=== PATIENT | female | born 1985 | race American Indian/Alaskan Native ===

== ENCOUNTER 2017-12-16 17:24 | Emergency (ER) | payer MEDICAID, OTHER ==
[2017-12-16 17:42] VITALS: BP 120/75
--- NOTE | 2017-12-16 20:04 | Emergency Department Report ---
Blank Doc - Documentation Documentation: Patient states 5 days ago she was lifting a sofa and started having some chest pain, abdominal pain, 8 out of 10, sharp without radiation. Symptoms are worse with movement. She has tried [id number] pain medicine without relief. She has a history of high blood pressure.
[2017-12-16 20:14] LABS: Basophils % (Auto) 0.6 % (0.0-1.8); Eosinophils # (Auto) 0.3 K/mm3 (0.0-0.4); Eosinophils % (Auto) 5.3 % (0.0-4.3); Hematocrit 41.1 % (30.3-42.9); Hemoglobin 13.8 gm/dl (10.1-14.3); Lymphocytes # (Auto) 2.2 K/mm3 (1.2-5.4); Lymphocytes % (Auto) 43.3 % (13.4-35.0); Mean Corpuscular HGB Conc 34 % (30-34); Mean Corpuscular Hemoglobin 30 pg (28-32); Mean Corpuscular Volume 89 fl (79-97); Monocytes # (Auto) 0.4 K/mm3 (0.0-0.8); Monocytes % (Auto) 7.3 % (0.0-7.3); Platelet Count 246 K/mm3 (140-440); Red Blood Count 4.59 M/mm3 (3.65-5.03)
[2017-12-16] MEDS ORDERED: ULTRAM PO ONE (20:19)
[2017-12-16 20:28] LABS: Alanine Aminotransferase 35 units/L (7-56); Albumin 4.3 g/dL (3.9-5); BUN/Creatinine Ratio 14; Blood Urea Nitrogen 10 mg/dL (7-17); Calcium 9.8 mg/dL (8.4-10.2); Hemolysis Index 4
--- NOTE | 2017-12-16 21:13 | XRay Report ---
FINAL REPORT EXAM: XR CHEST 1V AP HISTORY: chest pain TECHNIQUE: AP portable view of the chest PRIORS: None. FINDINGS: Lines, tubes, and devices: N/A Lungs and pleura: Trachea is normal in position. Lungs are clear of infiltrate, pleural effusion, vascular congestion, or pneumothorax. Cardiomediastinal silhouette: Cardiac and mediastinal silhouettes are unremarkable. Other: Bony structures are intact. IMPRESSION: No acute cardiopulmonary process seen.
--- NOTE | 2017-12-16 21:25 | Emergency Department Report ---
ED Chest Pain HPI - General Chief Complaint: Chest Pain Stated Complaint: CHEST,ABD,NECK PAIN, SPITTING UP BLOOD Time Seen by Provider: 12/16/17 21:23 Source: patient, family Mode of arrival: Ambulatory Limitations: No Limitations - History of Present Illness Initial Comments: Patient states 5 days ago she was lifting a sofa and started having some chest pain, abdominal pain, 8 out of 10, sharp without radiation. Symptoms are worse with movement. She has tried xbbj-nfv-mkyphfk pain medicine without relief. She has a history of high blood pressure. Denies any urinary burning frequency or urgency. Denies any nausea or vomiting. Denies any fever or chills. Reports lower back pain. Denies any vaginal bleeding or discharge. Denies any history of pulmonary embolism or heart disease. Denies any recent long distance travel for 3 hours or greater by plane or car. Denies taking control pills. Has any personal history of blood clots or family history of blood clot. Denies any swelling to her legs. Denies any chest pain or shortness of breath. Patient was screened and orders initiated by Dr. Figueroa. Complaint: chest pain Onset/Timin -: days(s) Onset: during exertion Pain Location: left chest, right chest Pain Radiation: none Severity: moderate (she reported pain was 10 out of 10 in triage area but 5 out of 10.) Severity scale (0 -10): 5 Quality: aching, other (cramping to her abdomen) Consistency: intermittent Improves With: rest Worsens With: exertion Context: trauma/injury (lifting heavy object) re: denies: nausea, vomting, diaphoresis, dyspnea, sense of impending doom Other Symptoms: denies: cough, fever, syncope, rash, acid taste in mouth, leg swelling, palpitations, burping Treatments Prior to Arrival: none Aspirin use within the Past 7 Days: (0) No - Related Data On Oral Contraceptives: No Home Medications Medication Instructions Recorded Confirmed Last Taken metroNIDAZOLE [Metronidazole] 1 tab PO BID 09/14/15 09/14/15 09/13/15 20:00 Previous Rx's Medication Instructions Recorded Last Taken Type Labetalol [Normodyne TAB] 200 mg PO BID #60 tablet 10/18/15 Unknown Rx Azithromycin [Zithromax TAB] 250 mg PO QDAY #6 tablet 01/27/16 Unknown Rx Cetirizine HCl [ZyrTEC] 10 mg PO QDAY #30 capsule 01/27/16 Unknown Rx guaiFENesin/CODEINE [Robitussin AC] 5 ml PO Q8H #120 ml 01/27/16 Unknown Rx Nitrofurantoin [place]/M-Cryst 100 mg PO Q12HR 5 Days #10 capsule 12/16/17 Unknown Rx [Macrobid CAP] Allergies Allergy/AdvReac Type Severity Reaction Status Date / Time penicillin G Allergy Rash Verified 12/16/17 17:38 venom-honey bee AdvReac Swelling Verified 12/16/17 17:38 [bee venom (honey bee)] Heart Score - HEART Score History: Slightly suspicious EKG: Normal Age: < 45 Risk factors: 1-2 risk factors Troponin: < normal limit HEART Score: 1 - Critical Actions Critical Actions: 0-3 pts:0.9-1.7%risk of adverse cardiac event.Candidate for discharge ED Review of Systems ROS: Stated complaint: CHEST,ABD,NECK PAIN, SPITTING UP BLOOD Other details as noted in HPI Comment: All other systems reviewed and negative Constitutional: no symptoms reported ENT: denies: congestion Respiratory: no symptoms reported Cardiovascular: chest pain. denies: palpitations, dyspnea on exertion, edema, syncope, paroxysmal nocturnal dyspnea Gastrointestinal: abdominal pain. denies: nausea, vomiting, diarrhea, constipation, hematemesis, melena, hematochezia Genitourinary: denies: urgency, dysuria, frequency, hematuria, discharge, abnormal menses, dyspareunia Musculoskeletal: back pain. denies: joint swelling, arthralgia, myalgia Skin: denies: rash Neurological: denies: headache, weakness, numbness, paresthesias, confusion, abnormal gait, vertigo ED Past Medical Hx - Past Medical History Previous Medical History?: Yes Hx Hypertension: Yes Hx Congestive Heart Failure: No Hx Diabetes: No Hx Deep Vein Thrombosis: No Hx Renal Disease: No Hx Sickle Cell Disease: No Hx Seizures: No Hx Asthma: Yes Hx COPD: No Hx HIV: No - Surgical History Past Surgical History?: No - Family History Family history: hypertension - Social History Smoking Status: Current Every Day Smoker Substance Use Type: None - Medications Home Medications: Home Medications Medication Instructions Recorded Confirmed Last Taken Type metroNIDAZOLE [Metronidazole] 1 tab PO BID 09/14/15 09/14/15 09/13/15 20:00 History Labetalol [Normodyne TAB] 200 mg PO BID #60 tablet 10/18/15 Unknown Rx Azithromycin [Zithromax TAB] 250 mg PO QDAY #6 tablet 01/27/16 Unknown Rx Cetirizine HCl [ZyrTEC] 10 mg PO QDAY #30 capsule 01/27/16 Unknown Rx guaiFENesin/CODEINE [Robitussin AC] 5 ml PO Q8H #120 ml 01/27/16 Unknown Rx Nitrofurantoin [place]/M-Cryst 100 mg PO Q12HR 5 Days #10 capsule 12/16/17 Unknown Rx [Macrobid CAP] ED Physical Exam - General Limitations: No Limitations General appearance: alert, in no apparent distress - Head Head exam: Present: atraumatic, normocephalic, normal inspection - Eye Eye exam: Present: normal appearance, PERRL, EOMI Pupils: Present: normal accommodation - ENT ENT exam: Present: normal exam, normal orophraynx, mucous membranes moist, TM's normal bilaterally, normal external ear exam - Neck Neck exam: Present: normal inspection, full ROM, other (no C-spine tenderness). Absent: tenderness, meningismus, lymphadenopathy, thyromegaly - Respiratory Respiratory exam: Present: normal lung sounds bilaterally. Absent: respiratory distress, chest wall tenderness - Cardiovascular Cardiovascular Exam: Present: regular rate, normal rhythm, normal heart sounds. Absent: systolic murmur, diastolic murmur - GI/Abdominal GI/Abdominal exam: Present: soft, normal bowel sounds. Absent: distended, tenderness, guarding, rebound, rigid, organomegaly, mass, bruit, pulsatile mass , hernia - Extremities Exam Extremities exam: Present: normal inspection, full ROM, normal capillary refill , other (no clubbing, no clubbing, cyanosis or edema. +2 pulses throughout extremities and no neurovascular compromise.). Absent: tenderness, pedal edema , joint swelling, calf tenderness - Back Exam Back exam: Present: normal inspection, full ROM, other (ambulates without any difficulties). Absent: tenderness, CVA tenderness (R), CVA tenderness (L), muscle spasm, paraspinal tenderness, vertebral tenderness, rash noted - Neurological Exam Neurological exam: Present: alert, oriented X3, normal gait, reflexes normal, other (no focal neurological deficit). Absent: motor sensory deficit - Psychiatric Psychiatric exam: Present: normal affect, normal mood - Skin Skin exam: Present: warm, dry, intact, normal color. Absent: rash ED Course Vital Signs 12/16/17 17:38 Temperature 98.4 F Pulse Rate 87 Respiratory 18 Rate Blood Pressure 120/75 O2 Sat by Pulse 98 Oximetry - Reevaluation(s) Reevaluation #1: 12/16/17 22:31 Patient was given tramadol 50 mg by mouth by an emergency room for pain. GRISEL score - Grisel Score Age > 65: (0) No Aspirin use within the Past 7 Days: (0) No 3 or more CAD Risk Factors: (0) No 2 or more Angina events in past 24 hrs: (0) No Known CAD with more than 50% Stenosis: (0) No Elevated Cardiac Markers: (0) No ST Deviation Greater than 0.5mm: (0) No GRISEL Score: 0 ED Medical Decision Making - Lab Data Result diagrams: 12/16/17 20:08 12/16/17 20:08 Lab Results 12/16/17 12/16/17 12/16/17 Range/Units 20:08 20:08 20:08 WBC 5.1 (4.5-11.0) K/mm3 RBC 4.59 (3.65-5.03) M/mm3 Hgb 13.8 (10.1-14.3) gm/dl Hct 41.1 (30.3-42.9) % MCV 89 (79-97) fl MCH 30 (28-32) pg MCHC 34 (30-34) % RDW 14.0 (13.2-15.2) % Plt Count 246 (140-440) K/mm3 Lymph % (Auto) 43.3 H (13.4-35.0) % [place] % (Auto) 7.3 (0.0-7.3) % Eos % (Auto) 5.3 H (0.0-4.3) % Baso % (Auto) 0.6 (0.0-1.8) % Lymph # 2.2 (1.2-5.4) K/mm3 [place] # 0.4 (0.0-0.8) K/mm3 Eos # 0.3 (0.0-0.4) K/mm3 Baso # 0.0 (0.0-0.1) K/mm3 Seg Neutrophils % 43.5 (40.0-70.0) % Seg Neutrophils # 2.2 (1.8-7.7) K/mm3 Sodium 137 (137-145) mmol/L Potassium 4.8 (3.6-5.0) mmol/L Chloride 99.9 (98-107) mmol/L Carbon Dioxide 28 (22-30) mmol/L Anion Gap 14 mmol/L BUN 10 (7-17) mg/dL Creatinine 0.7 (0.7-1.2) mg/dL Estimated GFR > 60 ml/min BUN/Creatinine Ratio 14 % Glucose 92 (65-100) mg/dL Calcium 9.8 (8.4-10.2) mg/dL Total Bilirubin 0.20 (0.1-1.2) mg/dL AST 26 (5-40) units/L ALT 35 (7-56) units/L Alkaline Phosphatase 59 (35-129) units/L Troponin T < 0.010 (0.00-0.029) ng/mL Total Protein 7.1 (6.3-8.2) g/dL Albumin 4.3 (3.9-5) g/dL Albumin/Globulin Ratio 1.5 % Urine Color (Yellow) Urine Turbidity (Clear) Urine pH (5.0-7.0) Ur Specific [place] (1.003-1.030) Urine Protein (Negative) mg/dL Urine Glucose (UA) (Negative) mg/dL Urine Ketones (Negative) mg/dL Urine Blood (Negative) Urine Nitrite (Negative) Ur Reducing Substances Urine Bilirubin (Negative) Urine Ictotest Urine Urobilinogen (<2.0) mg/dL Ur Leukocyte Esterase (Negative) Urine WBC (Auto) (0.0-6.0) /HPF Urine RBC (Auto) (0.0-6.0) /HPF U Epithel Cells (Auto) (0-13.0) /HPF Urine Bacteria (Auto) (Negative) /HPF Urine Mucus /HPF Urine HCG, Qual (Negative) 12/16/17 Range/Units Unknown WBC (4.5-11.0) K/mm3 RBC (3.65-5.03) M/mm3 Hgb (10.1-14.3) gm/dl Hct (30.3-42.9) % MCV (79-97) fl MCH (28-32) pg MCHC (30-34) % RDW (13.2-15.2) % Plt Count (140-440) K/mm3 Lymph % (Auto) (13.4-35.0) % [place] % (Auto) (0.0-7.3) % Eos % (Auto) (0.0-4.3) % Baso % (Auto) (0.0-1.8) % Lymph # (1.2-5.4) K/mm3 [place] # (0.0-0.8) K/mm3 Eos # (0.0-0.4) K/mm3 Baso # (0.0-0.1) K/mm3 Seg Neutrophils % (40.0-70.0) % Seg Neutrophils # (1.8-7.7) K/mm3 Sodium (137-145) mmol/L Potassium (3.6-5.0) mmol/L Chloride (98-107) mmol/L Carbon Dioxide (22-30) mmol/L Anion Gap mmol/L BUN (7-17) mg/dL Creatinine (0.7-1.2) mg/dL Estimated GFR ml/min BUN/Creatinine Ratio % Glucose (65-100) mg/dL Calcium (8.4-10.2) mg/dL Total Bilirubin (0.1-1.2) mg/dL AST (5-40) units/L ALT (7-56) units/L Alkaline Phosphatase (35-129) units/L Troponin T (0.00-0.029) ng/mL Total Protein (6.3-8.2) g/dL Albumin (3.9-5) g/dL Albumin/Globulin Ratio % Urine Color Yellow (Yellow) Urine Turbidity Clear (Clear) Urine pH 5.0 (5.0-7.0) Ur Specific [place] 1.016 (1.003-1.030) Urine Protein <15 mg/dl (Negative) mg/dL Urine Glucose (UA) Neg (Negative) mg/dL Urine Ketones Neg (Negative) mg/dL Urine Blood Sm (Negative) Urine Nitrite Neg (Negative) Ur Reducing Substances Not Reportable Urine Bilirubin Neg (Negative) Urine Ictotest Not Reportable Urine Urobilinogen < 2.0 (<2.0) mg/dL Ur Leukocyte Esterase Sm (Negative) Urine WBC (Auto) 3.0 (0.0-6.0) /HPF Urine RBC (Auto) 5.0 (0.0-6.0) /HPF U Epithel Cells (Auto) 7.0 (0-13.0) /HPF Urine Bacteria (Auto) 1+ (Negative) /HPF Urine Mucus Few /HPF Urine HCG, Qual Negative (Negative) Urine culture pending - EKG Data -: EKG Interpreted by Me (attending physician) EKG shows normal: sinus rhythm (sinus rhythm at 85 bpm) Rate: normal - EKG Data Interpretation: no acute changes - Radiology Data Radiology results: report reviewed No acute cardiopulmonary findings - Medical Decision Making Patient was seen by Dr. Figueroa. ED course: Pt here reported chest pain, lower back pain and abdominal cramping after moving out of apartment and lifting heavy object. Physical exam normal, abdomen, back and no chest wall tenderness. Chest x-ray revealed no acute cardiopulmonary findings.CBC, chemistry normal. Troponin is normal. Urinalysis with negative test but patient has trace amount of leukocyte Estrace, small blood and 1+ bacteria. Pls referred to laboratory section and radial section for details. GRISEL score is 0. Heart score is 1. EKG sinus rhythm. PERC rule and Wells Criteria ruled out pulmonary embolism or DVT.Patient left hospital before urinalysis is resulted. I called her on the phone to let her know that she has to come back for her paperwork because she has a bladder infection and will need to be started on antibiotic. Patient said that she cannot come back until tomorrow. I informed her paperwork along with prescription will be here for her. Patient had left hospital before discharge paperwork and she says she'll pick it up at 8:00 in the morning. I will refer her to primary care physician at [facility] and she will be placed on Bactrim DS. Patient was given Ultram 50 mg by mouth in emergency room which had relieved her pain before she left. Critical care attestation.: If time is entered above; I have spent that time in minutes in the direct care of this critically ill patient, excluding procedure time. ED Disposition Clinical Impression: Atypical chest pain, Acute cystitis with hematuria Abdominal pain Qualifiers: Abdominal location: lower abdomen, unspecified Qualified Code(s): R10.30 - Lower abdominal pain, unspecified Lower back pain Qualifiers: Chronicity: acute Back pain laterality: bilateral Sciatica presence: without sciatica Qualified Code(s): M54.5 - Low back pain Disposition: TO HOME OR SELFCARE Is pt being admited?: No Does the pt Need Aspirin: No Condition: Stable Instructions: Chest Pain (ED), Urinary Tract Infection in Women (ED), Back Pain (ED), Abdominal Pain (ED) Additional Instructions: Patient instructed to return to the emergency room to get her discharge instruction paperwork. She has a urinary tract infection and will be treated with Macrobid for 5 days. Follow-up with primary care and cardiology within 2-3 days Increase fluid intake Take antibiotic as prescribed for urinary tract infection Prescriptions: Nitrofurantoin [place]/M-Cryst [Macrobid CAP] 100 mg PO Q12HR 5 Days #10 capsule Referrals: [facility] [Outside] - 12/18/17 RYDER KENDRICK MD [Staff Physician] - 12/18/17 Forms: Work/School Release Form(ED)
[2017-12-16 21:26] LABS: HCG Qualitative,Urine Negative (Negative)
[2017-12-16 21:29] LABS: Bacteria,Urine 1+ /HPF (Negative); Bilirubin,Urine NEG (Negative); Blood,Urine SM (Negative); Color,Urine Yellow (Yellow); Mucus,Urine FEW /HPF; Protein,Urine <15 mg/dL mg/dL (Negative); Urobilinogen,Urine < 2.0 mg/dL (<2.0)
== END 2017-12-16 22:44 | disposition left against medical advice (07) ==
LOC: ED 17:24
DX: N30.01 Acute cystitis with hematuria (principal); M54.5 Low back pain; R10.30 Lower abdominal pain, unspecified; R07.89 Other chest pain; I10 Essential (primary) hypertension; F17.200 Nicotine dependence, unspecified, uncomplicated
CPT/HCPCS: 36415; 71045; 80053; 81001; 81025; 84484; 85025; 87086

== ENCOUNTER 2018-02-12 02:15 | Emergency (ER) | payer OTHER ==
[2018-02-12] MEDS ORDERED: TYLENOL ONE (04:51)
[2018-02-12] MEDS ORDERED: TYLENOL PO ONE (05:04)
[2018-02-12 05:31] LABS: Bilirubin,Urine NEG (Negative); Blood,Urine NEG (Negative); Color,Urine Yellow (Yellow); Mucus,Urine 3+ /HPF; Protein,Urine <15 mg/dL mg/dL (Negative); Urobilinogen,Urine < 2.0 mg/dL (<2.0)
[2018-02-12 05:58] LABS: Basophils % (Auto) 0.5 % (0.0-1.8); Eosinophils # (Auto) 0.3 K/mm3 (0.0-0.4); Hemoglobin 13.8 gm/dl (10.1-14.3); Lymphocytes # (Auto) 1.6 K/mm3 (1.2-5.4); Lymphocytes % (Auto) 25.3 % (13.4-35.0); Mean Corpuscular HGB Conc 34 % (30-34); Mean Corpuscular Hemoglobin 30 pg (28-32); Mean Corpuscular Volume 88 fl (79-97); Monocytes # (Auto) 0.5 K/mm3 (0.0-0.8); Monocytes % (Auto) 8.3 % (0.0-7.3); Platelet Count 202 K/mm3 (140-440); Red Blood Count 4.53 M/mm3 (3.65-5.03); Red Cell Distribution Width 14.6 % (13.2-15.2)
[2018-02-12 06:05] LABS: BUN/Creatinine Ratio 10; Blood Urea Nitrogen 4 mg/dL (7-17); Calcium 8.8 mg/dL (8.4-10.2); Hemolysis Index 3
--- NOTE | 2018-02-12 06:12 | Ultrasound Report ---
FINAL REPORT EXAM: US OB < = 14 WEEKS FETUS HISTORY: abdominal pain TECHNIQUE: Transabdominal imaging was obtained of the pelvis including Doppler interrogation of the fetus and adnexa. FINDINGS: There is an intrauterine with a well-formed gestational sac which contains a pole. The crown-rump length is 43.8 mm corresponding to an 11 week 2 day IUP. The heart rate is 161 BPM. There is no evidence of subchorionic hemorrhage. Free fluid is not seen the pelvis. The ovaries are appropriate size contour and echotexture. The right ovary measures 2.2 cm x 1.2 cm x 1.7 cm. The left ovary measures 2.6 cm x 1.7 cm x 2.4 cm. IMPRESSION: Single viable IUP, 11 weeks 2 days. The heart rate is 161 BPM. No adnexal masses or fluid collections.
[2018-02-12 07:47] VITALS: BP 133/81
--- NOTE | 2018-02-12 10:17 | Emergency Department Report ---
ED General Adult HPI - General Chief complaint: Abdominal Pain Stated complaint: ABD PAIN Time Seen by Provider: 02/12/18 10:05 Source: patient Mode of arrival: Ambulatory Limitations: No Limitations - History of Present Illness Initial comments: The patient is a 32-year-old [place] female who is approximately 11 weeks who is presenting with signs type symptoms. Patient's had a mild nonproductive cough. Frontal headache. Symptoms going on for 2 days. Patient states that she has some upper abdominal discomfort that she attributed to coughing. The patient denies any shortness of breath however she does state that her nose is stuffed up. Patient states there is been no nausea vomiting diarrhea at this time. Location: face Severity scale (0 -10): 7 Quality: aching Consistency: constant - Related Data Home Medications Medication Instructions Recorded Confirmed Last Taken metroNIDAZOLE [Metronidazole] 1 tab PO BID 09/14/15 09/14/15 09/13/15 20:00 Previous Rx's Medication Instructions Recorded Last Taken Type Labetalol [Normodyne TAB] 200 mg PO BID #60 tablet 10/18/15 Unknown Rx Cetirizine HCl [ZyrTEC] 10 mg PO QDAY #30 capsule 01/27/16 Unknown Rx guaiFENesin/CODEINE [Robitussin AC] 5 ml PO Q8H #120 ml 01/27/16 Unknown Rx Nitrofurantoin [place]/M-Cryst 100 mg PO Q12HR 5 Days #10 capsule 12/16/17 Unknown Rx [Macrobid CAP] Azithromycin [Zithromax TAB] 250 mg PO QDAY #6 tablet 02/12/18 Unknown Rx Fluticasone [Flonase] 1 spray NS QDAY #1 bottle 02/12/18 Unknown Rx Allergies Allergy/AdvReac Type Severity Reaction Status Date / Time penicillin G Allergy Rash Verified 12/16/17 17:38 venom-honey bee AdvReac Swelling Verified 12/16/17 17:38 [bee venom (honey bee)] ED Review of Systems ROS: Stated complaint: ABD PAIN Other details as noted in HPI Comment: All other systems reviewed and negative ED Past Medical Hx - Past Medical History Hx Hypertension: Yes Hx Congestive Heart Failure: No Hx Diabetes: No Hx Deep Vein Thrombosis: No Hx Renal Disease: No Hx Sickle Cell Disease: No Hx Seizures: No Hx Asthma: Yes Hx COPD: No Hx HIV: No - Surgical History Past Surgical History?: No - Social History Smoking Status: Current Every Day Smoker Substance Use Type: None - Medications Home Medications: Home Medications Medication Instructions Recorded Confirmed Last Taken Type metroNIDAZOLE [Metronidazole] 1 tab PO BID 09/14/15 09/14/15 09/13/15 20:00 History Labetalol [Normodyne TAB] 200 mg PO BID #60 tablet 10/18/15 Unknown Rx Cetirizine HCl [ZyrTEC] 10 mg PO QDAY #30 capsule 01/27/16 Unknown Rx guaiFENesin/CODEINE [Robitussin AC] 5 ml PO Q8H #120 ml 01/27/16 Unknown Rx Nitrofurantoin [place]/M-Cryst 100 mg PO Q12HR 5 Days #10 capsule 12/16/17 Unknown Rx [Macrobid CAP] Azithromycin [Zithromax TAB] 250 mg PO QDAY #6 tablet 02/12/18 Unknown Rx Fluticasone [Flonase] 1 spray NS QDAY #1 bottle 02/12/18 Unknown Rx ED Physical Exam - General Limitations: No Limitations General appearance: alert, in no apparent distress - Head Head exam: Present: atraumatic, normocephalic - Eye Eye exam: Present: normal appearance - ENT ENT exam: Present: mucous membranes moist, other (there is frontal and maxillary sinus tenderness on palpation) - Neck Neck exam: Present: normal inspection - Respiratory Respiratory exam: Present: normal lung sounds bilaterally. Absent: respiratory distress - Cardiovascular Cardiovascular Exam: Present: regular rate, normal rhythm. Absent: systolic murmur, diastolic murmur, rubs, gallop - GI/Abdominal GI/Abdominal exam: Present: soft, normal bowel sounds - Extremities Exam Extremities exam: Present: normal inspection - Back Exam Back exam: Present: normal inspection - Neurological Exam Neurological exam: Present: alert, oriented X3 - Psychiatric Psychiatric exam: Present: normal affect, normal mood - Skin Skin exam: Present: warm, dry, intact, normal color. Absent: rash ED Course Vital Signs 02/12/18 02/12/18 03:33 07:46 Temperature 98.4 F Pulse Rate 101 H 94 H Respiratory 20 18 Rate Blood Pressure 103/70 Blood Pressure 133/81 [Right] O2 Sat by Pulse 100 100 Oximetry ED Medical Decision Making - Lab Data Result diagrams: 02/12/18 05:09 02/12/18 05:09 Lab Results 02/12/18 02/12/18 02/12/18 Range/Units 05:00 05:09 05:09 WBC 6.3 (4.5-11.0) K/mm3 RBC 4.53 (3.65-5.03) M/mm3 Hgb 13.8 (10.1-14.3) gm/dl Hct 40.0 (30.3-42.9) % MCV 88 (79-97) fl MCH 30 (28-32) pg MCHC 34 (30-34) % RDW 14.6 (13.2-15.2) % Plt Count 202 (140-440) K/mm3 Lymph % (Auto) 25.3 (13.4-35.0) % [place] % (Auto) 8.3 H (0.0-7.3) % Eos % (Auto) 4.0 (0.0-4.3) % Baso % (Auto) 0.5 (0.0-1.8) % Lymph # 1.6 (1.2-5.4) K/mm3 [place] # 0.5 (0.0-0.8) K/mm3 Eos # 0.3 (0.0-0.4) K/mm3 Baso # 0.0 (0.0-0.1) K/mm3 Seg Neutrophils % 61.9 (40.0-70.0) % Seg Neutrophils # 3.9 (1.8-7.7) K/mm3 Sodium 137 (137-145) mmol/L Potassium 3.9 (3.6-5.0) mmol/L Chloride 100.9 (98-107) mmol/L Carbon Dioxide 25 (22-30) mmol/L Anion Gap 15 mmol/L BUN 4 L (7-17) mg/dL Creatinine 0.4 L (0.7-1.2) mg/dL Estimated GFR > 60 ml/min BUN/Creatinine Ratio 10 % Glucose 92 (65-100) mg/dL Calcium 8.8 (8.4-10.2) mg/dL HCG, Quant (0-4) mIU/mL Urine Color Yellow (Yellow) Urine Turbidity Clear (Clear) Urine pH 5.0 (5.0-7.0) Ur Specific [place] 1.020 (1.003-1.030) Urine Protein <15 mg/dl (Negative) mg/dL Urine Glucose (UA) Neg (Negative) mg/dL Urine Ketones 20 (Negative) mg/dL Urine Blood Neg (Negative) Urine Nitrite Neg (Negative) Urine Bilirubin Neg (Negative) Urine Urobilinogen < 2.0 (<2.0) mg/dL Ur Leukocyte Esterase Neg (Negative) Urine WBC (Auto) 1.0 (0.0-6.0) /HPF Urine RBC (Auto) 1.0 (0.0-6.0) /HPF U Epithel Cells (Auto) 5.0 (0-13.0) /HPF Urine Mucus 3+ /HPF 02/12/18 Range/Units 05:09 WBC (4.5-11.0) K/mm3 RBC (3.65-5.03) M/mm3 Hgb (10.1-14.3) gm/dl Hct (30.3-42.9) % MCV (79-97) fl MCH (28-32) pg MCHC (30-34) % RDW (13.2-15.2) % Plt Count (140-440) K/mm3 Lymph % (Auto) (13.4-35.0) % [place] % (Auto) (0.0-7.3) % Eos % (Auto) (0.0-4.3) % Baso % (Auto) (0.0-1.8) % Lymph # (1.2-5.4) K/mm3 [place] # (0.0-0.8) K/mm3 Eos # (0.0-0.4) K/mm3 Baso # (0.0-0.1) K/mm3 Seg Neutrophils % (40.0-70.0) % Seg Neutrophils # (1.8-7.7) K/mm3 Sodium (137-145) mmol/L Potassium (3.6-5.0) mmol/L Chloride (98-107) mmol/L Carbon Dioxide (22-30) mmol/L Anion Gap mmol/L BUN (7-17) mg/dL Creatinine (0.7-1.2) mg/dL Estimated GFR ml/min BUN/Creatinine Ratio % Glucose (65-100) mg/dL Calcium (8.4-10.2) mg/dL HCG, Quant 10253 H (0-4) mIU/mL Urine Color (Yellow) Urine Turbidity (Clear) Urine pH (5.0-7.0) Ur Specific [place] (1.003-1.030) Urine Protein (Negative) mg/dL Urine Glucose (UA) (Negative) mg/dL Urine Ketones (Negative) mg/dL Urine Blood (Negative) Urine Nitrite (Negative) Urine Bilirubin (Negative) Urine Urobilinogen (<2.0) mg/dL Ur Leukocyte Esterase (Negative) Urine WBC (Auto) (0.0-6.0) /HPF Urine RBC (Auto) (0.0-6.0) /HPF U Epithel Cells (Auto) (0-13.0) /HPF Urine Mucus /HPF Critical care attestation.: If time is entered above; I have spent that time in minutes in the direct care of this critically ill patient, excluding procedure time. ED Disposition Clinical Impression: Acute sinusitis Qualifiers: Sinusitis location: pansinusitis Recurrence: not specified as recurrent Qualified Code(s): J01.40 - Acute pansinusitis, unspecified Disposition: DC- TO HOME OR SELFCARE Is pt being admited?: No Does the pt Need Aspirin: No Condition: Stable Instructions: Sinusitis (ED) Prescriptions: Azithromycin [Zithromax TAB] 250 mg PO QDAY #6 tablet Fluticasone [Flonase] 1 spray NS QDAY #1 bottle Referrals: SHEILA CUNNINGHAM MD [Primary Care Provider] - 3-5 Days
== END 2018-02-12 10:32 | disposition home or self-care (01) ==
LOC: ED 02:15
DX: O99.511 Diseases of the respiratory system complicating pregnancy, first trimester (principal); J01.40 Acute pansinusitis, unspecified; J45.909 Unspecified asthma, uncomplicated; O99.331 Smoking (tobacco) complicating pregnancy, first trimester; F17.200 Nicotine dependence, unspecified, uncomplicated; O26.891 Other specified pregnancy related conditions, first trimester; R10.2 Pelvic and perineal pain; Z3A.11 11 weeks gestation of pregnancy; Z88.0 Allergy status to penicillin; Z91.030 Bee allergy status
CPT/HCPCS: 36415; 76801; 80048; 81001; 84702; 85025; 93005; 93010; 99283

== ENCOUNTER 2018-06-27 16:08 | Outpatient (CLI) | payer OTHER ==
[2018-06-27 16:57] LABS: Hematocrit 30.4 % (30.3-42.9); Hemoglobin 10.7 gm/dl (10.1-14.3); Mean Corpuscular HGB Conc 35 % (30-34); Mean Corpuscular Hemoglobin 32 pg (28-32); Mean Corpuscular Volume 91 fl (79-97); Platelet Count 254 K/mm3 (140-440); Red Blood Count 3.35 M/mm3 (3.65-5.03); Red Cell Distribution Width 13.8 % (13.2-15.2)
[2018-06-27 17:04] LABS: Bacteria,Urine 2+ /HPF (Negative); Bilirubin,Urine NEG (Negative); Blood,Urine NEG (Negative); Color,Urine Yellow (Yellow); Mucus,Urine 1+ /HPF; Protein,Urine <15 mg/dL mg/dL (Negative); Urobilinogen,Urine < 2.0 mg/dL (<2.0)
[2018-06-27 17:16] LABS: Alanine Aminotransferase 17 units/L (7-56); Uric Acid 3.8 mg/dL (3.5-7.6)
[2018-06-27] MEDS ORDERED: TYLENOL PO ONE (17:43)
[2018-06-27] MEDS ORDERED: LACTATED RINGERS 1,000 ML IV ONE (17:45)
[2018-06-27] MEDS ORDERED: CELESTONE SOLUSPAN IM ONE (18:00)
[2018-06-27 18:15] VITALS: BP 111/66
[2018-06-27 20:32] LABS: Creatinine 24 Hour,Urine 1.8 (0.8-2.8); Creatinine,Urine 175.3 mg/dL (0.1-20.0)
== END 2018-06-27 18:51 | disposition home or self-care (01) ==
LOC: TRG 16:08
PROVIDERS: ATTEND Obstetrics & Gynecology
DX: O47.03 False labor before 37 completed weeks of gestation, third trimester (principal); O10.013 Pre-existing essential hypertension complicating pregnancy, third trimester; O99.213 Obesity complicating pregnancy, third trimester; O99.513 Diseases of the respiratory system complicating pregnancy, third trimester; O99.333 Smoking (tobacco) complicating pregnancy, third trimester; Z3A.29 29 weeks gestation of pregnancy
CPT/HCPCS: 36415; 59025; 81001; 82565; 82570; 83615; 84156; 84450; 84460; 84550; 85027; J0702

== ENCOUNTER 2018-06-28 17:31 | Outpatient (CLI) | payer OTHER ==
[2018-06-28] MEDS ORDERED: LACTATED RINGERS 500 ML IV ONE (18:30)
[2018-06-28] MEDS ORDERED: CELESTONE SOLUSPAN IM ONE (18:30)
== END 2018-06-28 18:09 | disposition home or self-care (01) ==
LOC: TRG 17:31
PROVIDERS: ATTEND Obstetrics & Gynecology
DX: O47.03 False labor before 37 completed weeks of gestation, third trimester (principal); O10.013 Pre-existing essential hypertension complicating pregnancy, third trimester; O99.513 Diseases of the respiratory system complicating pregnancy, third trimester; O99.213 Obesity complicating pregnancy, third trimester; J45.909 Unspecified asthma, uncomplicated; Z3A.29 29 weeks gestation of pregnancy; F17.210 Nicotine dependence, cigarettes, uncomplicated
CPT/HCPCS: 96372; J0702

== ENCOUNTER 2018-07-26 12:28 | Outpatient (CLI) | payer OTHER ==
[2018-07-26 15:19] LABS: Bacteria,Urine 1+ /HPF (Negative); Bilirubin,Urine NEG (Negative); Blood,Urine NEG (Negative); Color,Urine Yellow (Yellow); Mucus,Urine FEW /HPF; Protein,Urine <15 mg/dL mg/dL (Negative)
[2018-07-26 15:57] LABS: Hematocrit 32.5 % (30.3-42.9); Mean Corpuscular HGB Conc 34 % (30-34); Mean Corpuscular Hemoglobin 30 pg (28-32); Mean Corpuscular Volume 90 fl (79-97); Platelet Count 252 K/mm3 (140-440); Red Blood Count 3.62 M/mm3 (3.65-5.03); Red Cell Distribution Width 13.7 % (13.2-15.2)
[2018-07-26 16:14] LABS: Alanine Aminotransferase 13 units/L (7-56); Uric Acid 3.9 mg/dL (3.5-7.6)
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
[2018-07-26] MEDS ORDERED: COLACE PO PRN (19:11)
[2018-07-26] MEDS ORDERED: TYLENOL PO PRN (19:11)
[2018-07-26] MEDS ORDERED: BENADRYL PO PRN (19:11)
[2018-07-26 20:26] VITALS: BP 139/86
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
[2018-07-27] MEDS ORDERED: PRENATAL VITAMIN PO SCH (10:00)
== END 2018-07-26 20:35 | disposition home or self-care (01) ==
LOC: TRG 12:28 → LD 12:29 → TRG 20:35
PROVIDERS: ATTEND Obstetrics & Gynecology
DX: O9A.213 Injury, poisoning and certain other consequences of external causes complicating pregnancy, third trimester (principal); O13.3 Gestational [pregnancy-induced] hypertension without significant proteinuria, third trimester; O99.213 Obesity complicating pregnancy, third trimester; O99.333 Smoking (tobacco) complicating pregnancy, third trimester; Z3A.35 35 weeks gestation of pregnancy
CPT/HCPCS: 36415; 59025; 76815; 76819; 76820; 81001; 82565; 83615; 84450; 84460; 84550; 85027; 85460

== ENCOUNTER 2021-08-08 09:11 | Emergency (ER) | payer OTHER ==
--- NOTE | 2021-08-08 10:35 | Emergency Department Report ---
ED HPI - General Chief complaint: Vaginal Bleeding Stated complaint: POSS MISSCARRIAGE Time Seen by Provider: 08/08/21 09:29 Source: patient Mode of arrival: Ambulatory Limitations: No Limitations - History of Present Illness Initial comments: The patient was evaluated in the emergency department for symptoms described in the history of present illness. He/she was evaluated in the context of the global COVID-19 pandemic, which necessitated consideration that the patient might be at risk for infection with the virus that causes COVID-19. Institutional protocols and algorithms that pertain to the evaluation of patients at risk for COVID-19 are in a state of rapid change based on information released by regulatory bodies including the CDC and federal and state organizations. These policies and algorithms were followed during the patient's care in the emergency department. Please note that these policies, procedures and recommendations changed on a rapid basis. 36-year-old -[place] female presents to the emergency room for vaginal discharge for 3 days. Patient is currently with last menstrual period June 09, 2021. She is followed by [facility]. She is 6 para 3 2 abortions. States that the bleeding started spotting when she wiped and now is noticing it toilet with some tissue. He states that she has had to use a panty liner. She is considered high risk as she has a history of hypertension C- section at her last . She has 3 children at home with age of 7, 5 and 2. She is currently on labetalol, hydrochlorothiazide and amlodipine. Patient reports she has a history of placenta previa with her last . MD Complaint: vaginal bleeding - Related Data Home Medications Medication Instructions Recorded Confirmed Last Taken metroNIDAZOLE [Metronidazole] 1 tab PO BID 09/14/15 08/07/18 09/13/15 20:00 Aspirin EC [Aspirin Enteric Coated 81 mg PO QDAY 07/30/18 08/07/18 08/06/18 21:00 TAB] Tablet 1 tab PO DAILY 07/30/18 08/07/18 08/07/18 07:00 Previous Rx's Medication Instructions Recorded Last Taken Type labetaloL [Labetalol 200mg TAB] 200 mg PO BID #60 tablet 10/18/15 Unknown Rx Cetirizine HCl [ZyrTEC] 10 mg PO QDAY #30 capsule 01/27/16 08/06/18 21:00 Rx guaiFENesin/CODEINE [Robitussin AC] 5 ml PO Q8H #120 ml 01/27/16 Unknown Rx Nitrofurantoin [place]/M-Cryst 100 mg PO Q12HR 5 Days #10 capsule 12/16/17 Unknown Rx [Macrobid CAP] Azithromycin [Zithromax TAB] 250 mg PO QDAY #6 tablet 02/12/18 Unknown Rx Fluticasone [Flonase] 1 spray NS QDAY #1 bottle 02/12/18 Unknown Rx Ferrous Sulfate [Feosol 325 MG tab] 325 mg PO BID 30 Days #60 tablet 08/09/18 Unknown Rx Ibuprofen [Ibu] 800 mg PO Q6HR PRN #30 tablet MDD 08/09/18 Unknown Rx 3200g oxyCODONE /ACETAMINOPHEN [Percocet 1 tab PO Q4HR PRN 14 Days #30 tab 08/09/18 Unknown Rx 5/325] Allergies Allergy/AdvReac Type Severity Reaction Status Date / Time penicillin G Allergy Rash Verified 12/16/17 17:38 venom-honey bee AdvReac Swelling Verified 12/16/17 17:38 [bee venom (honey bee)] ED Review of Systems ROS: Stated complaint: POSS MISSCARRIAGE Other details as noted in HPI ED Past Medical Hx - Past Medical History Previous Medical History?: Yes Hx Hypertension: Yes (gestational HTN. No hx chronic HTN.) Hx Heart Attack/AMI: No Hx Congestive Heart Failure: No Hx Diabetes: No Hx Deep Vein Thrombosis: No Hx Liver Disease: No Hx Renal Disease: No Hx Sickle Cell Disease: No Hx Seizures: No Hx Asthma: Yes (childhood; no inhaler use in many years) Hx COPD: No Hx HIV: No - Surgical History Past Surgical History?: Yes Additional Surgical History: - Social History Smoking Status: Current Every Day Smoker - Medications Home Medications: Home Medications Medication Instructions Recorded Confirmed Last Taken Type metroNIDAZOLE [Metronidazole] 1 tab PO BID 09/14/15 08/07/18 09/13/15 20:00 History labetaloL [Labetalol 200mg TAB] 200 mg PO BID #60 tablet 10/18/15 08/07/18 Unknown Rx Cetirizine HCl [ZyrTEC] 10 mg PO QDAY #30 capsule 01/27/16 08/07/18 08/06/18 21:00 Rx guaiFENesin/CODEINE [Robitussin AC] 5 ml PO Q8H #120 ml 01/27/16 08/07/18 Unknown Rx Nitrofurantoin [place]/M-Cryst 100 mg PO Q12HR 5 Days #10 capsule 12/16/17 08/07/18 Unknown Rx [Macrobid CAP] Azithromycin [Zithromax TAB] 250 mg PO QDAY #6 tablet 02/12/18 08/07/18 Unknown Rx Fluticasone [Flonase] 1 spray NS QDAY #1 bottle 02/12/18 08/07/18 Unknown Rx Aspirin EC [Aspirin Enteric Coated 81 mg PO QDAY 07/30/18 08/07/18 08/06/18 21:00 History TAB] Tablet 1 tab PO DAILY 07/30/18 08/07/18 08/07/18 07:00 History Ferrous Sulfate [Feosol 325 MG tab] 325 mg PO BID 30 Days #60 tablet 08/09/18 Unknown Rx Ibuprofen [Ibu] 800 mg PO Q6HR PRN #30 tablet MDD 08/09/18 Unknown Rx 3200g oxyCODONE /ACETAMINOPHEN [Percocet 1 tab PO Q4HR PRN 14 Days #30 tab 08/09/18 Unknown Rx 5/325] ED Physical Exam - General Limitations: No Limitations General appearance: alert, in no apparent distress - Head Head exam: Present: atraumatic, normocephalic - Eye Eye exam: Present: normal appearance - ENT ENT exam: Present: mucous membranes moist - Neck Neck exam: Present: normal inspection - Respiratory Respiratory exam: Present: normal lung sounds bilaterally. Absent: respiratory distress - Cardiovascular Cardiovascular Exam: Present: regular rate, normal rhythm. Absent: systolic murmur, diastolic murmur, rubs, gallop - GI/Abdominal GI/Abdominal exam: Present: soft, normal bowel sounds - Extremities Exam Extremities exam: Present: normal inspection - Back Exam Back exam: Present: normal inspection - Neurological Exam Neurological exam: Present: alert, oriented X3 - Psychiatric Psychiatric exam: Present: normal affect, normal mood - Skin Skin exam: Present: warm, dry, intact, normal color. Absent: rash ED Course Vital Signs 08/08/21 09:20 Temperature 98.5 F Pulse Rate 111 H Respiratory 20 Rate Blood Pressure 150/99 [Right] O2 Sat by Pulse 99 Oximetry - Consultations Consultation #1: 08/08/21 13:[address] Saint Taylor SEWER AND DRAIN TECHNICIAN from [facility]. She recommends patient to follow-up on Monday for repeat hCG bed rest and to follow-up end of the week for possible ultrasound. Recommend pelvic rest. ED Medical Decision Making - Lab Data Result diagrams: 08/08/21 10:21 08/08/21 10:21 Laboratory Tests 08/08/21 08/08/21 08/08/21 10:21 10:21 10:21 WBC 4.6 RBC 4.56 Hgb 11.6 Hct 36.0 MCV 79 MCH 26 L MCHC 32 RDW 16.9 H Plt Count 299 Lymph % (Auto) 45.4 H [place] % (Auto) 6.1 Eos % (Auto) 4.1 Baso % (Auto) 0.9 Lymph # (Auto) 2.1 [place] # (Auto) 0.3 Eos # (Auto) 0.2 Baso # (Auto) 0.0 Seg Neutrophils % 43.5 Seg Neutrophils # 2.0 Sodium 136 L Potassium 3.8 Chloride 106.6 Carbon Dioxide 19 L Anion Gap 14 BUN 6 L Creatinine 0.5 L Estimated GFR > 60 BUN/Creatinine Ratio 12 Glucose 96 Calcium 8.6 Total Bilirubin < 0.20 AST 13 ALT 14 Alkaline Phosphatase 68 Total Protein 7.1 Albumin 3.8 L Albumin/Globulin Ratio 1.2 HCG, Quant 2570 H Blood Type Ord Rhogam Gestat Weeks 08/08/21 10:21 WBC RBC Hgb Hct MCV MCH MCHC RDW Plt Count Lymph % (Auto) [place] % (Auto) Eos % (Auto) Baso % (Auto) Lymph # (Auto) [place] # (Auto) Eos # (Auto) Baso # (Auto) Seg Neutrophils % Seg Neutrophils # Sodium Potassium Chloride Carbon Dioxide Anion Gap BUN Creatinine Estimated GFR BUN/Creatinine Ratio Glucose Calcium Total Bilirubin AST ALT Alkaline Phosphatase Total Protein Albumin Albumin/Globulin Ratio HCG, Quant Blood Type O POSITIVE Ord Rhogam Gestat Weeks Rh pos - Radiology Data Radiology results: report reviewed [facility] [address] [place] [address] Ultrasound Report Signed Patient: JERRICA ZEE MR#: [id number] : 1985 Acct:[id number] Age/Sex: 36 / F ADM Date: 08/08/21 Loc: ED Attending Dr: Ordering Physician: CHASITY YI Date of Service: 08/08/21 Procedure(s): US OB transvaginal Accession Number(s): [id number] cc: CHASITY YI PELVIC ULTRASOUND INDICATION: with vaginal bleeding COMPARISON: None pertinent available TECHNIQUE: Transabdominal and endovaginal FINDINGS: Uterus: Measures 12.2 x 6.4 x 3.9 cm. Endometrial stripe measures 15 mm at the upper end of the normal range. No obvious intrauterine is seen. No significant fluid is seen within the endometrial canal. Right ovary: Measures 2.9 cm in length. Blood flow is noted. A 2 cm moderately complex cyst is seen. No significant increased flow is noted. No cardiac activity was detected. Questionable ringlike area is seen possibly indicating a yolk sac but no pole is identified. This may just represent internal debris however. Left ovary: Measures 3.4 cm in length and shows no significant abnormalities. Blood flow is noted. No significant free fluid is seen. IMPRESSION: 1. No intrauterine is confirmed 2. Moderately complex small right ovarian cyst is seen. This does not show increased peripheral blood flow as is often seen with ectopic . Questionable structure internally possibly could represent a small yolk sac but no pole or cardiac activity are noted. I cannot exclude the possibility of ectopic and consider this indeterminate but this could just represent a hemorrhagic corpus luteum cyst. Close clinical follow-up is suggested and sonographic follow-up may be useful. Signer Name: Tim Jimenez MD Signed: 08/08/2021 12:45 PM Workstation Name: [id number] Transcribed By: SADIE Dictated By: Tim Jimeenz MD Electronically Authenticated By: Tim Jimenez MD Signed Date/Time: 08/08/21 1245 DD/ 1238 TD/TT: - Medical Decision Making 36-year-old -[place] female presents to the emergency room for vaginal discharge for 3 days. Patient is currently with last menstrual period June 09, 2021. She is followed by [facility]. She is 6 para 3 2 abortions. States that the bleeding started spotting when she wiped and now is noticing it toilet with some tissue. He states that she has had to use a panty liner. She is considered high risk as she has a history of hypertension C- section at her last . She has 3 children at home with age of 7, 5 and 2. She is currently on labetalol, hydrochlorothiazide and amlodipine. Patient reports she has a history of placenta previa with her last . Vaginal bleeding protocol has been ordered. Critical care attestation.: If time is entered above; I have spent that time in minutes in the direct care of this critically ill patient, excluding procedure time. ED Disposition Clinical Impression: Threatened miscarriage in early Disposition: HOME / SELF CARE / HOMELESS Is pt being admited?: No Does the pt Need Aspirin: No Condition: Stable Instructions: Vaginal Bleeding During , First Trimester, Threatened Miscarriage Additional Instructions: Spoke to Dr. Saint Taylor SEWER AND DRAIN TECHNICIAN at [facility] she recommends a follow-up on Monday to have repeat hCG and follow-up during the week for a repeat ultrasound. You are to be on bedrest pelvic rest which means no intercourse no strenuous running jumping skydiving. There is no foreign body into the vaginal canal. They are to increase your fluid intake only medication for pain you can take is Tylenol. Continue with your vitamins. Referrals: PRIMARY CARE, [Primary Care Provider] - 3-5 Days [facility]CHNIC[facility] [Provider Group] - 3-5 Days Forms: Work/School Release Form(ED) Time of Disposition: 13:31
[2021-08-08 10:40] LABS: Basophils % (Auto) 0.9 % (0.0-1.8); Eosinophils # (Auto) 0.2 K/mm3 (0.0-0.4); Eosinophils % (Auto) 4.1 % (0.0-4.3); Hemoglobin 11.6 gm/dl (10.1-14.3); Lymphocytes # (Auto) 2.1 K/mm3 (1.2-5.4); Lymphocytes % (Auto) 45.4 % (13.4-35.0); Mean Corpuscular HGB Conc 32 % (30-34); Mean Corpuscular Volume 79 fl (79-97); Monocytes # (Auto) 0.3 K/mm3 (0.0-0.8); Monocytes % (Auto) 6.1 % (0.0-7.3); Platelet Count 299 K/mm3 (140-440); Red Blood Count 4.56 M/mm3 (3.65-5.03); Red Cell Distribution Width 16.9 % (13.2-15.2)
[2021-08-08 11:06] LABS: Alanine Aminotransferase 14 units/L (7-56); Albumin 3.8 g/dL (3.9-5); BUN/Creatinine Ratio 12; Blood Urea Nitrogen 6 mg/dL (7-17); Calcium 8.6 mg/dL (8.4-10.2); Hemolysis Index 5
--- NOTE | 2021-08-08 12:50 | Ultrasound Report ---
PELVIC ULTRASOUND INDICATION: with vaginal bleeding COMPARISON: None pertinent available TECHNIQUE: Transabdominal and endovaginal FINDINGS: Uterus: Measures 12.2 x 6.4 x 3.9 cm. Endometrial stripe measures 15 mm at the upper end of the cristhian l range. No obvious intrauterine is seen. No significant fluid is seen within the endometri al canal. Right ovary: Measures 2.9 cm in length. Blood flow is noted. A 2 cm moderately complex cyst is seen. No significant increased flow is noted. No cardiac activity was detected. Questionable ringlike area is seen possibly indicating a yolk sac but no pole is identified. This may just represent inter nal debris however. Left ovary: Measures 3.4 cm in length and shows no significant abnormalities. Blood flow is noted. No significant free fluid is seen. IMPRESSION: 1. No intrauterine is confirmed 2. Moderately complex small right ovarian cyst is seen. This does not show increased peripheral blood flow as is often seen with ectopic . Questionable structure internally possibly could repre sent a small yolk sac but no pole or cardiac activity are noted. I cannot exclude the possibili ty of ectopic and consider this indeterminate but this could just represent a hemorrhagic c orpus luteum cyst. Close clinical follow-up is suggested and sonographic follow-up may be useful. Signer Name: Tim Jimenez MD Signed: 08/08/2021 12:45 PM Workstation Name: [id number]
[2021-08-08 13:34] LABS: Mucus,Urine FEW /HPF
[2021-08-08 13:36] LABS: RBC,Urine > 182.0 /HPF (0.0-6.0); WBC,Urine < 1.0 /HPF (0.0-6.0)
[2021-08-08 13:37] LABS: Color,Urine RED (Yellow)
[2021-08-08 13:47] VITALS: BP 119/84
== END 2021-08-08 13:47 | disposition home or self-care (01) ==
LOC: ED 09:11
DX: O20.0 Threatened abortion (principal); I10 Essential (primary) hypertension; F17.200 Nicotine dependence, unspecified, uncomplicated; J45.909 Unspecified asthma, uncomplicated; Z98.890 Other specified postprocedural states; Z88.0 Allergy status to penicillin; Z91.030 Bee allergy status; Z79.899 Other long term (current) drug therapy; Z79.82 Long term (current) use of aspirin
CPT/HCPCS: 36415; 76801; 76817; 80053; 81001; 84702; 85025; 86900; 86901; 99284